=== PATIENT | female | born 1930 | race Two or more races ===

== ENCOUNTER 2017-03-01 14:41 | Outpatient (CLI) | payer MEDICARE, MEDICAID ==
--- NOTE | 2017-03-01 15:30 | Diagnostic Imaging Report ---
Indication: COUGH Technique: Two views of the chest Comparison: none No acute process Findings: Lungs are hyperinflated. Lungs and pleural spaces are clear. 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 Heart size is normal. There are degenerative changes of the thoracic spine Impression: No acute process
== END 2017-03-01 16:41 | disposition home or self-care (01) ==
LOC: RAD 14:41
DX: R05 Cough (principal); Z95.0 Presence of cardiac pacemaker
CPT/HCPCS: 71020